=== PATIENT | female | born 1940 | race African-American/Black ===

== ENCOUNTER 2019-03-04 13:25 | Inpatient (IN) | payer MEDICARE, MEDICAID ==
[~2019-03-04] VITALS: Ht 152.4 cm; Wt 67.8 kg
[~2019-03-04 13:25] MED LIST: AMLO10TA80; CLON0.5T12; CLON1TAB12 PO; LISI1TAB11
[2019-03-04 15:49] LABS: BASOPHILS % 0.5 % (0.0-2.0); EOSINOPHILS % 2.6 % (0.0-5.0); HEMATOCRIT. 42.2 % (36.0-48.0); HEMOGLOBIN. 13.9 g/dL (12.0-16.0); LYMPHOCYTES % 36.9 % (20.0-50.0); MEAN CORPUSCULAR HEMOGLOBIN 26.6 pg (28.0-32.0); MEAN CORPUSCULAR VOLUME 81.1 fL (81.0-99.0); MEAN PLATELET VOLUME 9.6 fl (7.4-10.4); MONOCYTES % 4.9 % (2.0-8.0); NEUTROPHILS % 55.1 % (40.0-76.0); PLATELET 340 x1000/uL (130-400); RED CELL DISTRIBUTION WIDTH 15.5 % (11.6-14.6)
[2019-03-04 15:53] LABS: CHLORIDE 108 mEq/L (98-107)
[2019-03-04 15:57] LABS: INR 1.1; PARTIAL THROMBOPLASTIN TIME 30.6 sec (23.4-31.0); PROTHROMBIN TIME 10.8 sec (9.6-11.0)
[2019-03-04] MEDS ORDERED: ASPIRIN 325MG EC TABLET PO ONE (16:00)
[2019-03-04 20:00] VITALS: BP 169/53
[2019-03-04] MEDS ORDERED: DIPHENHYDRAMINE 50MG/ML VIAL IV PRN (20:45)
[2019-03-04] MEDS ORDERED: ONDANSETRON HCL 4MG/2ML INJ IV PRN (20:45)
[2019-03-04] MEDS ORDERED: DOCUSATE SODIUM 100MG CAPSULE PO PRN (20:45)
[2019-03-04] MEDS ORDERED: CLONIDINE 0.1MG TABLET PO PRN (20:45)
[2019-03-04] MEDS ORDERED: ACETAMINOPHEN 325MG TABLET PO PRN (20:45)
[2019-03-04] MEDS ORDERED: MEMA5TAB7 PO (21:10)
[2019-03-04] MEDS ORDERED: QUET25TA PO (21:10)
[2019-03-04] MEDS ORDERED: HYDR-4134 PO (21:10)
[2019-03-04] MEDS ORDERED: ASPI-1158 PO (21:10)
[2019-03-04] MEDS ORDERED: PROP20TA19 PO (21:10)
[2019-03-04] MEDS ORDERED: ZET10 MT (21:10)
[2019-03-04] MEDS ORDERED: OMEP20TA2 PO (21:10)
[2019-03-04] MEDS ORDERED: QUET100T PO (21:10)
[2019-03-04 22:59] LABS: CLARITY URINE CLEAR (CLEAR); COLOR URINE YELLOW (YELLOW); KETONES URINE NEGATIVE (NEGATIVE); LEUKOCYTE ESTERASE URINE NEGATIVE (NEGATIVE); NITRITE URINE NEGATIVE (NEGATIVE); OCCULT BLOOD URINE NEGATIVE (NEGATIVE); PROTEIN URINE 1+ (NEGATIVE); SPECIFIC GRAVITY URINE 1.015 (1.005-1.030); UROBILINOGEN URINE 0.2 E.U./dL (0.2-1.0)
[2019-03-05] VITALS: BP 136/45
[2019-03-05 04:00] VITALS: BP 128/52
[2019-03-05 06:23] LABS: BASOPHILS % 0.2 % (0.0-2.0); EOSINOPHILS % 1.8 % (0.0-5.0); HEMATOCRIT. 42.1 % (36.0-48.0); HEMOGLOBIN. 13.9 g/dL (12.0-16.0); LYMPHOCYTES % 38.5 % (20.0-50.0); MEAN CORPUSCULAR HEMOGLOBIN 26.8 pg (28.0-32.0); MEAN CORPUSCULAR VOLUME 80.9 fL (81.0-99.0); MEAN PLATELET VOLUME 9.8 fl (7.4-10.4); MONOCYTES % 4.7 % (2.0-8.0); NEUTROPHILS % 54.8 % (40.0-76.0); PLATELET 379 x1000/uL (130-400); RED CELL DISTRIBUTION WIDTH 15.6 % (11.6-14.6)
[2019-03-05 08:00] VITALS: BP 153/57
[2019-03-05 08:28] LABS: CHLORIDE 106 mEq/L (98-107)
[2019-03-05 08:36] LABS: HDL CHOLESTEROL 45 mg/dL (40-59)
[2019-03-05 08:37] LABS: LDL CHOLESTEROL 146 mg/dL (5-100)
[2019-03-05] MEDS ORDERED: PROPRANOLOL HCL 20MG TABLET PO SCH (09:00)
[2019-03-05] MEDS: EZETIMIBE 10MG TABLET PO SCH (09:12)
[2019-03-05] MEDS: HYDRALAZINE HCL 25MG TABLET PO SCH ×2 (09:12→20:26)
[2019-03-05] MEDS: ASPIRIN 81MG EC TABLET PO SCH (09:12)
[2019-03-05] MEDS: OMEPRAZOLE 20MG CAPSULE EXTENDED RELEASE PO SCH (09:12)
[2019-03-05] MEDS: MEMANTINE HCL 5MG TABLET PO SCH (09:12)
[2019-03-05] MEDS: ENOXAPARIN 30MG/0.3ML SYR SUBCUT SCH (09:13)
[2019-03-05] MEDS: CLOPIDOGREL 75MG TABLET PO SCH (11:47)
[2019-03-05 12:00] VITALS: BP 128/58
[2019-03-05 14:23] LABS: *BARBITURATES SCREEN URINE NEGATIVE (NEGATIVE); *BENZODIAZEPINES SCREEN URINE NEGATIVE (NEGATIVE); *COCAINE SCREEN URINE NEGATIVE (NEGATIVE)
[2019-03-05 14:24] LABS: CANNABINOID URINE SCREEN NEGATIVE (NEGATIVE); METHADONE URINE SCREEN NEGATIVE (NEGATIVE); OPIATES URINE SCREEN NEGATIVE (NEGATIVE); PHENCYCLIDINE URINE SCREEN NEGATIVE (NEGATIVE)
[2019-03-05 14:30] LABS: *AMPHETAMINES SCREEN URINE NEGATIVE (NEGATIVE)
[2019-03-05 16:00] VITALS: BP 133/56
[2019-03-05 16:24] LABS: ETHANOL BLOOD < 10 mg/dL
[2019-03-05 16:26] LABS: LDL CHOLESTEROL 138 mg/dL (5-100)
[2019-03-05 16:29] LABS: HDL CHOLESTEROL 45 mg/dL (40-59); T4 FREE 0.99 ng/dL (0.76-1.46)
[2019-03-05 17:57] LABS: FOLIC ACID (FOLATE) SERUM 18.6 ng/mL (>5.38)
[2019-03-05 20:00] VITALS: BP 130/67
[2019-03-05] MEDS: METOPROLOL TARTRATE 25MG TABLET PO SCH (20:05)
[2019-03-06] VITALS: BP 122/33
[2019-03-06 04:00] VITALS: BP 145/49
[2019-03-06 06:35] LABS: BASOPHILS % 0.3 % (0.0-2.0); EOSINOPHILS % 2.3 % (0.0-5.0); HEMATOCRIT. 41.4 % (36.0-48.0); HEMOGLOBIN. 13.5 g/dL (12.0-16.0); LYMPHOCYTES % 40.6 % (20.0-50.0); MEAN CORPUSCULAR HEMOGLOBIN 26.5 pg (28.0-32.0); MEAN CORPUSCULAR VOLUME 81.2 fL (81.0-99.0); MEAN PLATELET VOLUME 9.8 fl (7.4-10.4); MONOCYTES % 5.2 % (2.0-8.0); NEUTROPHILS % 51.6 % (40.0-76.0); PLATELET 337 x1000/uL (130-400); RED CELL DISTRIBUTION WIDTH 15.8 % (11.6-14.6)
[2019-03-06 08:00] VITALS: BP 132/50
[2019-03-06] MEDS: EZETIMIBE 10MG TABLET PO SCH (09:51)
[2019-03-06] MEDS: MEMANTINE HCL 5MG TABLET PO SCH (09:51)
[2019-03-06] MEDS: OMEPRAZOLE 20MG CAPSULE EXTENDED RELEASE PO SCH (09:52)
[2019-03-06] MEDS: METOPROLOL TARTRATE 25MG TABLET PO SCH (09:52)
[2019-03-06] MEDS: ASPIRIN 81MG EC TABLET PO SCH (09:52)
[2019-03-06] MEDS: HYDRALAZINE HCL 25MG TABLET PO SCH (09:52)
[2019-03-06] MEDS: ENOXAPARIN 30MG/0.3ML SYR SUBCUT SCH (09:52)
[2019-03-06] MEDS: CLOPIDOGREL 75MG TABLET PO SCH (09:52)
[2019-03-06 15:23] VITALS: BP 155/49
[2019-03-06 16:00] VITALS: BP 155/49
[2019-03-06] MEDS ORDERED: ATORVASTATIN CALCIUM 40MG TABLET PO SCH (21:00)
== END 2019-03-06 18:05 | disposition home or self-care (01) | DRG 68 ==
LOC: ER 14:10 → 7WST 17:38 → EDBEDREQ 17:41 → ENRESERV 17:58
PROVIDERS: ADMIT Internal Medicine Nephrology; ATTEND Internal Medicine Nephrology
DX: I65.21 Occlusion and stenosis of right carotid artery (principal); N39.0 Urinary tract infection, site not specified; I69.351 Hemiplegia and hemiparesis following cerebral infarction affecting right dominant side; I11.9 Hypertensive heart disease without heart failure; I25.10 Atherosclerotic heart disease of native coronary artery without angina pectoris; E78.00 Pure hypercholesterolemia, unspecified; E78.5 Hyperlipidemia, unspecified; H93.19 Tinnitus, unspecified ear; Z90.710 Acquired absence of both cervix and uterus
CPT/HCPCS: 36415; 70544; 70553; 71045; 72170; 80048; 80061; 80305; 80320; 82607; 82746; 83036; 83880; 84439; 84443; 84481; 84484; 93005; 93306; 93880; 93970; 97161; 97165; 99285; J1650; G0480

== ENCOUNTER 2022-03-07 10:21 | Emergency (ER) | payer MEDICARE, MEDICAID ==
[~2022-03-07] VITALS: Ht 162.6 cm; Wt 75.0 kg
[~2022-03-07 10:21] MED LIST changes: -AMLO10TA80; +AMLO1CAP PO; +ASPI-1406 PO; -CLON0.5T12; -CLON1TAB12 PO; +EZET10TA13 MT; +HYDR-4134 PO; -LISI1TAB11; +MEMA5TAB7 PO; +OMEP20TA23 PO; +PROP20TA19 PO; +QUET50TA23 PO
[2022-03-07 10:41] VITALS: BP 149/62
[2022-03-07] MEDS ORDERED: ACETAMINOPHEN 325MG TABLET PO ONE (11:15)
[2022-03-07] MEDS ORDERED: ACET-2708 MT (12:39)
== END 2022-03-07 12:52 | disposition home or self-care (01) ==
LOC: ER 10:37
DX: G89.29 Other chronic pain (principal); M79.661 Pain in right lower leg; E78.00 Pure hypercholesterolemia, unspecified; I11.9 Hypertensive heart disease without heart failure; Z86.73 Personal history of transient ischemic attack (TIA), and cerebral infarction without residual deficits; Z79.82 Long term (current) use of aspirin; Z91.048 Other nonmedicinal substance allergy status
CPT/HCPCS: 99282

== ENCOUNTER 2023-07-16 01:37 | Emergency (ER) | payer OTHER, MEDICAID ==
[~2023-07-16] VITALS: Ht 160 cm; Wt 50.0 kg
[~2023-07-16 01:37] MED LIST changes: +ACET-2708 MT; -EZET10TA13 MT; +EZET10TA81 MT
[2023-07-16 01:48] VITALS: O2SAT 99
[2023-07-16] MEDS: HYDRALAZINE 20MG/ML VIAL IV NR ×2 (02:53→02:55)
[2023-07-16 03:19] LABS: BASOPHILS % 0.6 % (0.0-2.0); DIFFERENTIAL COMMENT 0; EOSINOPHILS % 1.9 % (0.0-5.0); HEMATOCRIT. 39.5 % (36.0-48.0); HEMOGLOBIN. 12.8 g/dL (12.0-16.0); LYMPHOCYTES % 38.4 % (20.0-50.0); MEAN CORPUSCULAR HEMOGLOBIN 25.2 pg (28.0-32.0); MEAN CORPUSCULAR HGB CONC 32.5 g/dL (31.0-37.0); MEAN CORPUSCULAR VOLUME 77.6 fL (81.0-99.0); MEAN PLATELET VOLUME 9.7 fl (7.4-10.4); MONOCYTES % 5.4 % (2.0-8.0); NEUTROPHILS % 53.7 % (40.0-76.0); PLATELET 329 x1000/uL (130-400); RED BLOOD CELL COUNT 5.09 mill/uL (4.2-5.4); WHITE BLOOD COUNT 10.8 x1000/uL (4.5-11.0)
[2023-07-16 04:24] LABS: ALANINE AMINOTRANSFERASE 13 IU/L (13-61); ALBUMIN 3.2 g/dL (3.4-5.0); ASPARTATE AMINOTRANSFERASE 14 IU/L (15-37); BILIRUBIN TOTAL 0.5 mg/dL (0.1-1.0); CALCIUM 9.5 mg/dL (8.5-10.1); CARBON DIOXIDE 23 mEq/L (21-32); CHLORIDE 111 mEq/L (98-107); CREATININE 1.4 mg/dL (0.6-1.3); GLUCOSE 105 mg/dL (70-105); INDEX HEMOLYSI 1 (1-3); INDEX ICTERIC 1 (1-4); INDEX LIPEMIC 1 (1-3); POTASSIUM 3.7 mEq/L (3.5-5.1); PROTEIN TOTAL 7.4 g/dL (6.0-8.3); SODIUM 141 mEq/L (136-145); TROPONIN I HIGH SENSITIVITY 17 ng/L (<54); UREA NITROGEN BLOOD 21 mg/dL (7-21)
[2023-07-16] MEDS ORDERED: HYDRALAZINE 20MG/ML VIAL IV ONE (06:00)
[2023-07-16 06:17] LABS: TROPONIN I HIGH SENSITIVITY 23 ng/L (<54)
[2023-07-16 06:59] VITALS: BP 156/59; PULSE 66; RESP 17; TEMP 98
== END 2023-07-16 07:47 | disposition short-term general hospital (02) ==
LOC: ER 02:14
DX: I10 Essential (primary) hypertension (principal); Z79.899 Other long term (current) drug therapy; Z79.82 Long term (current) use of aspirin
CPT/HCPCS: 99285; 96374; 71045; 80053; 85025; 84484; 36415; 93005; 96376; J0360